=== PATIENT | female | born 1945 | race Caucasian/White ===

== ENCOUNTER 2021-09-02 07:20 | Day surgery (SDC) | payer MEDICARE ==
--- NOTE | 2021-08-27 10:21 | HP ---
DATE OF SURGERY: 09/02/2021 HISTORY OF PRESENT ILLNESS: The patient is a 75-year-old female presented with complaints of some right upper quadrant pain and epigastric pain. The patient at some point in time has been told she had Gray's by Dr. Erazo. She had a colonoscopy in 2019 that showed no polyps. The patient has history of hiatal hernia repair in [place]. They called it TIPS (transjugular intrahepatic portosystemic shunt) procedure. She stated the pain that she has been having has been getting worse. She denies nausea, vomiting or bloating. The patient has had her gallbladder removed. She does also state history of perforated gastric ulcer. She had IR (interventional radiology) drainage of fluid collection in the anterior liver in April 2021. PAST MEDICAL HISTORY: Hypertension, gastroesophageal reflux disease. PAST SURGICAL HISTORY: Cholecystectomy. Hiatal hernia repair. Gastric ulcer perforation repair. ALLERGIES: CLINDAMYCIN. KETAMINE. PANTOPRAZOLE. MEDICATIONS: Metoprolol, Pepcid, acidophilus, Flonase, calcium, multivitamin, latanoprost, Estrace cream, Lasix, fluoxetine, omeprazole. FAMILY HISTORY: None. SOCIAL HISTORY: None. REVIEW OF SYSTEMS: CONSTITUTIONAL: Denies fever or chills. CHEST: Denies shortness of breath. CVS: Denies chest pain. ABDOMEN: Reports right upper quadrant pain. PHYSICAL EXAMINATION: GENERAL: No acute distress. CHEST: Nonlabored. No shortness of breath. CVS: Regular rate and rhythm. ABDOMEN: Soft, nontender. IMPRESSION: Persistent right upper quadrant and epigastric pain and history of colon polyps. This pain is status post patient's hiatal hernia repair. PLAN: EGD and colonoscopy with Dr. Chase Guaman. As dictated by Merary Hua NP.
[2021-09-02] MEDS ORDERED: Lactated Ringers 1,000 ML IV ONE (07:40)
[2021-09-02] MEDS: Lactated Ringers 1,000 ML IV SCH ×2 (07:42→07:44)
[2021-09-02] MEDS ORDERED: DIPRIVAN 200 MG/20 ML IV ONE ×2 (10:17→10:42)
[2021-09-02] MEDS ORDERED: Versed 2 MG/2 ML Injection ONE (10:17)
[2021-09-02] MEDS ORDERED: Xylocaine-Mpf 2% 5 Ml Vial ONE (10:17)
[2021-09-02] MEDS ORDERED: Zofran 4 MG/2 ML VIAL ONE (10:54)
--- NOTE | 2021-09-02 11:53 | OP ---
SURGERY DATE/TIME: 09/02/2021 1014 PREOPERATIVE DIAGNOSES: 1) Epigastric pain. 2) History of polyps. POSTOPERATIVE DIAGNOSES: 1) Severe sigmoid diverticulosis. 2) Moderate internal hemorrhoids 3) Grade 3 over 4 gastroesophageal reflux disease. PROCEDURES: 1) EGD. 2) Colonoscopy. SURGEON: Chase Guaman M.D. ANESTHESIA: MAC. COMPLICATIONS: None. CONDITION: Stable. DESCRIPTION OF PROCEDURE: Taken to endoscopy. Colonoscopy complete to cecum with severe sigmoid diverticulosis, moderate internal hemorrhoids. Anticipated follow up five years. EGD with grade 3 over 4 gastroesophageal reflux disease and visualization of three internal sutures from the minimally invasive gastric wrap with a fairly snug gastroesophageal junction. There was 3 ounces of gastric bile in the fundus. Pylorus normal. Duodenal bulb normal. Second portion normal. Scope looped back into the stomach. Gastroesophageal junction fairly normal from below with ligation sutures clearly visible. Scope withdrawn. IMPRESSION: It does not look like the plication has done anything for her reflux although the plication looks okay. We will see her back in the office and see what additional strategies we can work out with this individual at this time.
[2021-09-02 11:55] VITALS: BP 166/81; PULSE 55; O2SAT 97
== END 2021-09-02 12:00 | disposition home or self-care (01) ==
LOC: SDC 07:20
PROVIDERS: ATTEND Surgery
DX: K57.30 Diverticulosis of large intestine without perforation or abscess without bleeding (principal); Z86.010 Personal history of colon polyps; K64.8 Other hemorrhoids; K21.9 Gastro-esophageal reflux disease without esophagitis
CPT/HCPCS: 99100; J2250; J2405; J2704

== ENCOUNTER 2021-09-03 13:46 | Emergency (ER) | payer MEDICARE ==
--- NOTE | 2021-09-03 14:38 | ERPHSYRPT ---
- History of Present Illness Source: patient Exam Limitations: no limitations Patient Subjective Stated Complaint: PT states "On Jul 08 I fell down a flight of stairs, about 8 to 9 steps and there is a spot on my back that has been hurting ever since. When I stand up alot my back hurts." Triage Nursing Assessment: PT presented alert and oriented X 3, skin pwd. Pt ambulates with an upright steady gait, able to speak in full sentences pt in no apparent respiratory distress. pt has tenderness noted to mid back, no bruising noted. Physician History: 75 yo WF w R paraspinous pain which began 1-2 weeks after falling down stairs at home. She has not been seen by PCP/ER for this problem. Pain is mild at this time but gets severe w movement. Pt's states that the pain was so bad at [facility] today that she becmae nauseated and had to lie down on a bench. She denies chest pain/dyspnea/vomiting/fever/melena/hematochezia. Pt had an EGD/colonoscopy yesterday wo complications. Timing/Duration: other (Late Jun) Method of Injury: fall Quality: aching Severity of Pain-Max: severe Severity of Pain-Current: mild Modifying Factors: Improves With: movement Associated Symptoms: nausea, No fever, No chills, No sweating, No urinary incontinence, No loss of bowel control, No constipation, No vomiting, No problems urinating, No light-headedness, No dizziness, No numbness in legs/feet, No weakness, No sensory/motor loss, No tingling in legs/feet, No lower back pain, No muscle spasms Previous symptoms: same symptoms as today Allergies/Adverse Reactions: clindamycin Allergy (Intermediate, Verified 09/02/21 07:34) Hives ketamine Allergy (Intermediate, Verified 09/02/21 07:34) Nausea and Vomiting pantoprazole Adverse Reaction (Intermediate, Verified 09/02/21 07:34) Lightheadedness Home Medications: Albuterol Common Canister [Ventolin Common Canister] 1 puff IH Q4HPRN PRN 08/25/21 [History] Calcium Carb/Vitamin D3/Vit K1 [Calcium + D Soft Chewable Tab] 1 each PO DAILY 08/25/21 [History] Estradiol [Estrace] 42.5 gm VG WEEKLY 08/25/21 [History] Famotidine [Pepcid] 40 mg PO BID 08/25/21 [History] Fluoxetine HCl 10 mg [Prozac 10 mg] 10 mg PO DAILY 08/25/21 [History] Fluticasone Propionate [Flonase Allergy Relief] 9.9 ml NS DAILY 08/25/21 [History] Fluticasone/Salmeterol [Fluticasone-Salmeterol 113-14] 1 each IH DAILY 08/25/21 [History] Furosemide 20 mg [Lasix 20 mg] 20 mg PO DAILY 08/25/21 [History] L.acidoph,Saliva/B.bif/S.therm [Acidophilus 175 mg Capsule] 175 mg PO DAILY 08/25/21 [History] Latanoprost [Xalatan] 2.5 ml OP DAILY 08/25/21 [History] Metoprolol Tartrate 25 mg [Lopressor 25MG Tab] 25 mg PO BID 08/25/21 [History] Multivitamin 1 each PO DAILY 08/25/21 [History] Hx Tetanus, Diphtheria Vaccination/Date Given: No Hx Influenza Vaccination/Date Given: Yes Hx Pneumococcal Vaccination/Date Given: Yes Immunizations Up to Date: Yes Travel Risk - International Travel Have you traveled outside of the country in past 3 weeks: No - Coronavirus Screening Are you exhibiting any of the following symptoms?: No Close contact with a COVID-19 positive Pt in past 14-21 Days: No - Vaccine Status Have you recieved a Covid-19 vaccination: Yes Technical Support Manager: Moderna - Vaccination Dates Date of 2cond Vaccination (if applicable): 07/2020 - Review of Systems Constitutional: No Symptoms Eyes: No Symptoms Ears, Nose, & Throat: No Symptoms Respiratory: No Symptoms Cardiac: No Symptoms Abdominal/Gastrointestinal: No Symptoms Genitourinary Symptoms: No Symptoms Skin: No Symptoms Neurological: No Symptoms Psychological: No Symptoms Endocrine: No Symptoms Hematologic/Lymphatic: No Symptoms Immunological/Allergic: No Symptoms - Past Medical History Pertinent Past Medical History: Yes ENT History: Glaucoma Cardiac History: Hypertension Respiratory History: Pneumonia Musculoskeletal History: No Pertinent History GI Medical History: GERD History: No Pertinent History Psycho-Social History: No Pertinent History Female Reproductive Disorders: No Pertinent History - Past Surgical History Past Surgical History: Yes Neuro Surgical History: No Pertinent History Cardiac: No Pertinent History Respiratory: No Pertinent History Gastrointestinal: Hernia Repair, Other Other Surgical History: ruptured gastric ulcer, i&d of abcessed incision. - Social History Smoking Status: Former smoker How long have you smoked: 2 years Exposure to second hand smoke: No Drug Use: none Patient Lives Alone: No Significant Family History: no pertinent family hx - Nursing Vital Signs Nursing Vital Signs: Initial Vital Signs Temperature 97.0 F 09/03/21 13:54 Pulse Rate 75 09/03/21 13:54 Respiratory Rate 20 09/03/21 13:54 Blood Pressure 169/69 09/03/21 13:54 O2 Sat by Pulse Oximetry 96 09/03/21 13:54 Pain Scale Pain Intensity 2 Hypertensive - Physical Exam General Appearance: no apparent distress Eye Exam: PERRL/EOMI, eyes nml inspection Ears, Nose, Throat Exam: normal ENT inspection, TMs normal, pharynx normal, moist mucous membranes Neck Exam: normal inspection, non-tender, supple, full range of motion, No meningismus, No mass, No Brudzinski, No Kernig's Respiratory Exam: normal breath sounds, lungs clear, airway intact, No respiratory distress Cardiovascular Exam: regular rate/rhythm, normal heart sounds, normal peripheral pulses, capillary refill <2 sec, No murmur Gastrointestinal Exam: soft, tenderness (RUQ ttp(Chronic)) Back Exam: point tenderness (TTP R mid paraspinous musculature), No CVA tenderness Extremity Exam: normal inspection, normal range of motion Neurologic Exam: alert, oriented x 3, cooperative, switch cleaner II-XII nml as tested, normal mood/affect, nml cerebellar function, nml station & gait, sensation nml, No motor deficits, No sensory deficit Skin Exam: normal color, warm Lymphatic Exam: No adenopathy SpO2 Interpretation: normal SpO2: 96 O2 Delivery: Room Air - Course Nursing assessment & vital signs reviewed: Yes EKG Interpreted by Me: RATE (NSR/Rate 64/Mildly prolonged Qt-QTc/Flipped T waves ) - Radiology Exams Chest X-ray Interpretation: Discussed w/ radiologist (L mid-lower lung atelectasis/scarring) - CT Exams Chest CT Interpretation: Discussed w/radiologist (CT Tspine-endplate deformity T1/T3/L1, Patchy LLL interstitual alveolar opacities) Ordered Tests: Active Orders 24 hr Category Date Time Status EKG-ER Only STAT Care 09/03/21 14:29 Completed CHEST 1 VIEW (PORTABLE) Stat Exams 09/03/21 16:31 Completed THORACIC SPINE W/O CONTRAST [CT] Stat Exams 09/03/21 14:28 Completed CBC W DIFF Stat Lab 09/03/21 15:00 Completed CMP Stat Lab 09/03/21 15:00 Completed TROPONIN Q3H Lab 09/03/21 15:00 Completed TROPONIN Q3H Lab 09/03/21 17:32 Completed Lab/Rad Data: Laboratory Result Diagrams 09/03/21 15:00 09/03/21 15:00 Laboratory Results 09/03/21 09/03/21 09/03/21 Range/Units 17:32 15:00 15:00 WBC (4.0-10.5) K/mm3 RBC (4.1-5.4) M/mm3 Hgb (12.0-16.0) gm/dl Hct (35-47) % MCV (78-100) fl MCH (26-32) pg MCHC (32-36) g/dl RDW (11.5-14.0) % Plt Count (150-450) K/mm3 MPV (7.5-11.0) fl Gran % (36.0-66.0) % Eos # (Auto) (0-0.5) Absolute Lymphs (auto) (1.0-4.6) Absolute Monos (auto) (0.0-1.3) Lymphocytes % (24.0-44.0) % Monocytes % (0.0-12.0) % Eosinophils % (0.00-5.0) % Basophils % (0.0-0.4) % Absolute Granulocytes (1.4-6.9) Basophils # (0-0.4) Sodium 136 L (137-145) mmol/L Potassium 4.1 (3.5-5.1) mmol/L Chloride 101 (98-107) mmol/L Carbon Dioxide 26 (22-30) mmol/L Anion Gap 13.0 (5-15) MEQ/L BUN 14 (7-17) mg/dL Creatinine 0.87 (0.52-1.04) mg/dL Estimated GFR > 60.0 ML/MIN Glucose 113 H (74-106) mg/dL Calcium 9.1 (8.4-10.2) mg/dL Total Bilirubin 1.00 (0.2-1.3) mg/dL AST 27 (14-36) U/L ALT 16 (0-35) U/L Alkaline Phosphatase 82 (38-126) U/L Troponin I < 0.012 < 0.012 (0.000-0.034) ng/mL Serum Total Protein 7.4 (6.3-8.2) g/dL Albumin 4.0 (3.5-5.0) g/dL 09/03/21 Range/Units 15:00 WBC 14.4 H (4.0-10.5) K/mm3 RBC 3.79 L (4.1-5.4) M/mm3 Hgb 11.7 L (12.0-16.0) gm/dl Hct 35.6 (35-47) % MCV 93.9 (78-100) fl MCH 30.9 (26-32) pg MCHC 32.9 (32-36) g/dl RDW 13.3 (11.5-14.0) % Plt Count 316 (150-450) K/mm3 MPV 9.0 (7.5-11.0) fl Gran % 83.4 H (36.0-66.0) % Eos # (Auto) 0.02 (0-0.5) Absolute Lymphs (auto) 1.26 (1.0-4.6) Absolute Monos (auto) 1.08 (0.0-1.3) Lymphocytes % 8.7 L (24.0-44.0) % Monocytes % 7.5 (0.0-12.0) % Eosinophils % 0.1 (0.00-5.0) % Basophils % 0.3 (0.0-0.4) % Absolute Granulocytes 12.01 H (1.4-6.9) Basophils # 0.05 (0-0.4) Sodium (137-145) mmol/L Potassium (3.5-5.1) mmol/L Chloride (98-107) mmol/L Carbon Dioxide (22-30) mmol/L Anion Gap (5-15) MEQ/L BUN (7-17) mg/dL Creatinine (0.52-1.04) mg/dL Estimated GFR ML/MIN Glucose (74-106) mg/dL Calcium (8.4-10.2) mg/dL Total Bilirubin (0.2-1.3) mg/dL AST (14-36) U/L ALT (0-35) U/L Alkaline Phosphatase (38-126) U/L Troponin I (0.000-0.034) ng/mL Serum Total Protein (6.3-8.2) g/dL Albumin (3.5-5.0) g/dL - Progress Progress Note: 09/03/21 17:25 Pt refused pain meds during entire stay Before discharge, pt states that she had some old Wayne's from a previous procedure which she was cutting in half for pain 09/03/21 20:01 Counseled pt/family regarding: lab results, diagnosis, need for follow-up, rad results - Departure Departure Disposition: Home Clinical Impression: Compression fracture Condition: Stable Critical Care Time: No Referrals: ELIANE MALLORY DO [Primary Care Provider] - Follow up/PCP as directed Instructions: Vertebral Compression Fracture (DC) Additional Instructions: Follow up with your family Tylenol #3 as needed for pain Use a stool softener with pain meds Return to ER for increasing pain/chest pain/Fever/Shortness of breath Prescriptions: Codeine Phosphate/APAP #3 [Tylenol #3 Tablet] 1 tab PO Q4-6HPRN PRN #8 tablet MDD 4 tabs PRN Reason: Pain
[2021-09-03 15:04] LABS: Absolute Neutrophil Ct (ANC) 12.01 (1.4-6.9); Basophil (Absolute #) 0.05 (0-0.4); Eosinophil % 0.1 % (0.00-5.0); Eosinophil (Absolute #) 0.02 (0-0.5); Hematocrit 35.6 % (35-47); Hemoglobin 11.7 gm/dl (12.0-16.0); Lymphocyte (Absolute #) 1.26 (1.0-4.6); Lymphocytes % 8.7 % (24.0-44.0); Mean Cell Volume 93.9 fl (78-100); Mean Corpuscular Hemoglobin 30.9 pg (26-32); Mean Corpuscular Hgb Concent. 32.9 g/dl (32-36); Monocyte (Absolute #) 1.08 (0.0-1.3); Monocytes % 7.5 % (0.0-12.0); Neutrophil % 83.4 % (36.0-66.0); Platelet Count 316 K/mm3 (150-450); Red Blood Count 3.79 M/mm3 (4.1-5.4); Red Cell Distribution Width 13.3 % (11.5-14.0); White Blood Count 14.4 K/mm3 (4.0-10.5)
[2021-09-03 15:19] LABS: ALKALINE PHOSPHATASE 82 U/L (38-126); BLOOD UREA NITROGEN 14 mg/dL (7-17); CHLORIDE 101 mmol/L (98-107); Calcium 9.1 mg/dL (8.4-10.2); Carbon Dioxide 26 mmol/L (22-30); Creatinine 1 0.87 mg/dL (0.52-1.04); EST GLOMERULAR FILTRATION RATE > 60.0 ML/MIN; Glucose 113 mg/dL (74-106); Potassium 4.1 mmol/L (3.5-5.1); SGOT/AST 27 U/L (14-36); SGPT/ALT 16 U/L (0-35); SODIUM 136 mmol/L (137-145); Total Protein 7.4 g/dL (6.3-8.2)
--- NOTE | 2021-09-03 15:56 | XRAY ---
Indication: Pain following fall July 08, 2021. Multiple contiguous axial images obtained through the thoracic spine. Sagittal and coronal reformatted images obtained. Comparison: None Osseous structures demineralized consistent with patient's age. Axial images demonstrates mild T6-T9 degenerative endplate spurring and mild T8-T9 degenerative vacuum disc phenomena. No acute fracture, suspicious bony lesions, or spinal canal stenosis. Sagittal and coronal reformatted images demonstrates normal thoracic alignment with T6-T9 disc space loss. T1/T3/L1 superior endplates demonstrates minimal concave deformities either Schmorl nodes versus remote endplate fractures. No acute compression fracture or subluxation. Visualized noncontrasted soft tissues demonstrates moderate left lower lobe subsegmental atelectasis/scarring with patchy interstitial alveolar opacities. Impression: 1. Negative acute fracture/subluxation. 2. Minimal T1/T3/L1 superior endplate concave deformities either Schmorl nodes versus remote endplate fractures. 3. Osteopenia and T6-T9 degenerative changes. 4. Patchy left lower lobe interstitial alveolar opacities. Correlate clinically.
--- NOTE | 2021-09-03 16:50 | XRAY ---
Indication: Back pain following fall Jul 08, 2021. Comparison: October 18, 2019. Portable chest again demonstrates left mid to lower lung subsegmental atelectasis/scarring, less than before. Remaining heart and lungs unremarkable again with a few incidental right hilar calcified nodes. Bony thorax intact. No new/acute findings.
[2021-09-03 17:26] VITALS: O2SAT 96
[2021-09-03 18:03] VITALS: BP 160/77; PULSE 61
== END 2021-09-03 18:10 | disposition home or self-care (01) ==
LOC: ED 13:46
DX: S22.018A Other fracture of first thoracic vertebra, initial encounter for closed fracture (principal); S22.038A Other fracture of third thoracic vertebra, initial encounter for closed fracture; S32.018A Other fracture of first lumbar vertebra, initial encounter for closed fracture; W10.9XXA Fall (on) (from) unspecified stairs and steps, initial encounter; M54.9 Dorsalgia, unspecified; R11.0 Nausea; I10 Essential (primary) hypertension; K21.9 Gastro-esophageal reflux disease without esophagitis; Z79.899 Other long term (current) drug therapy; Z79.891 Long term (current) use of opiate analgesic
CPT/HCPCS: 36415; 71045; 72128; 80053; 84484; 85025; 93005; 99284

== ENCOUNTER 2023-02-27 11:29 | Observation (INO) | payer MEDICARE ==
--- NOTE | 2023-02-27 11:38 | ERPHSYRPT ---
- History of Present Illness Time Seen by Provider: 02/27/23 11:29 Source: patient, EMS Exam Limitations: no limitations Physician History: Reportedly pt slipped & fell at home about 1 hour ago on concrete with pain in her left thigh; denies numbness, chest pain, shortness of air, fever. Allergies/Adverse Reactions: clindamycin Allergy (Intermediate, Verified 02/27/23 11:38) Hives ketamine Allergy (Intermediate, Verified 02/27/23 11:38) Nausea and Vomiting pantoprazole Adverse Reaction (Intermediate, Verified 02/27/23 11:38) Lightheadedness Home Medications: Albuterol Common Canister [Ventolin Common Canister] 1 puff IH Q4HPRN PRN 08/25/21 [History] Calcium Carb/Vitamin D3/Vit K1 [Calcium + D Soft Chewable Tab] 1 each PO DAILY 08/25/21 [History] Estradiol [Estrace] 42.5 gm VG WEEKLY 08/25/21 [History] Famotidine [Pepcid] 40 mg PO BID 08/25/21 [History] Fluoxetine HCl 10 mg [Prozac 10 mg] 10 mg PO DAILY 08/25/21 [History] Fluticasone Propionate [Flonase Allergy Relief] 9.9 ml NS DAILY 08/25/21 [History] Fluticasone/Salmeterol [Fluticasone-Salmeterol 113-14] 1 each IH DAILY 08/25/21 [History] Furosemide 20 mg [Lasix 20 mg] 20 mg PO DAILY 08/25/21 [History] Latanoprost [Xalatan] 2.5 ml OP DAILY 08/25/21 [History] Multivitamin 1 each PO DAILY 08/25/21 [History] Lisinopril 10 mg [Zestril 10 MG] 10 mg PO DAILY 02/27/23 [History] Hx Tetanus, Diphtheria Vaccination/Date Given: No Hx Influenza Vaccination/Date Given: Yes Hx Pneumococcal Vaccination/Date Given: Yes Travel Risk - Vaccine Status Have you recieved a Covid-19 vaccination: Yes Ward Nurse: Moderna - Vaccination Dates Date of 2cond Vaccination (if applicable): 07/2020 - Review of Systems Constitutional: No Fever Respiratory: No Dyspnea Cardiac: No Chest Pain Abdominal/Gastrointestinal: No Abdominal Pain Musculoskeletal: Other (pain in left thigh) Neurological: No Sensory Changes - Past Medical History Pertinent Past Medical History: Yes ENT History: Glaucoma Cardiac History: Hypertension Respiratory History: Pneumonia Musculoskeletal History: No Pertinent History GI Medical History: GERD History: No Pertinent History Psycho-Social History: No Pertinent History Female Reproductive Disorders: No Pertinent History - Past Surgical History Past Surgical History: Yes Neuro Surgical History: No Pertinent History Cardiac: No Pertinent History Respiratory: No Pertinent History Gastrointestinal: Hernia Repair, Other Other Surgical History: ruptured gastric ulcer, i&d of abcessed incision. - Social History Smoking Status: Former smoker How long have you smoked: 2 years Exposure to second hand smoke: No Drug Use: none Patient Lives Alone: No Significant Family History: no pertinent family hx - Nursing Vital Signs Nursing Vital Signs: Initial Vital Signs Temperature 97.0 F 02/27/23 11:47 Pulse Rate 50 L 02/27/23 11:47 Respiratory Rate 18 02/27/23 11:47 Blood Pressure 175/68 02/27/23 11:47 O2 Sat by Pulse Oximetry 100 02/27/23 11:47 Pain Scale Pain Intensity 4 - Robinson Coma Score Best Eye Response (Gerardo): (4) open spontaneously Best Verbal Response (Robinson): (5) oriented Best Motor Response (Gerardo): (6) obeys commands Robinson Total: 15 - Physical Exam General Appearance: alert Head Injury: no evidence of injury Eye Exam: PERRL/EOMI ENT Exam: nml ext.inspection Neck Exam: trachea midline Respiratory/Chest Exam: normal breath sounds, No chest tenderness Cardiovascular Exam: normal heart sounds Gastrointestinal Exam: soft, normal bowel sounds, No tenderness Extremity Exam: tenderness (moderate tenderness over mid anterior left thigh; tender ecchymosis over mid left keys. Decreased rom of left lower extremity.) Peripheral Pulses: dorsalis-pedis (R): 2+, dorsalis-pedis (L): 2+ Neurologic Exam: alert, oriented x 3, cooperative Skin Exam: warm, dry SpO2 Interpretation: normal SpO2: 100 O2 Delivery: Room Air - Radiology Exams Left Femur X-ray Interpretation: Discussed w/ radiologist, No Fracture Left Lower Leg X-ray Interpretation: Discussed w/ radiologist, No Fracture Ordered Tests: Active Orders 24 hr Category Date Time Status IV Insertion STAT Care 10/09/23 11:54 Active FEMUR Stat Exams 02/27/23 12:17 Completed LOWER LEG Stat Exams 02/27/23 12:17 Completed Medication Summary Generic Name Dose Route Start Last Admin Trade Name Freq PRN Reason Stop Dose Admin Sodium Chloride 1,000 mls @ 100 mls/hr 02/27/23 11:45 02/27/23 11:47 Sodium Chloride 0.9% 1000 Ml IV 03/29/23 11:44 100 mls/hr .Q10H KAYLEE Administration Discontinued Medications Generic Name Dose Route Start Last Admin Trade Name Freq PRN Reason Stop Dose Admin Morphine Sulfate 2 mg 02/27/23 11:57 02/27/23 11:59 Morphine Sulfate 2 Mg/Ml Inj IV 02/27/23 11:58 2 mg STAT ONE Administration Morphine Sulfate Confirm 02/27/23 11:58 Morphine Sulfate 2 Mg/Ml Inj Administered 02/27/23 11:59 Dose 2 mg .ROUTE .STK-MED ONE - Progress Progress: unchanged Discussed with Dr.: Other (Spoke with Dr. Daley - obs) Counseled pt/family regarding: diagnosis, rad results Medical Desision Making - Discussion of managment Agreed on:: place in obs Will see patient: in hospital - Diagnostic Testing Diagnostic test were ordered, analyzed, and reviewed by me: Yes Radiological Interpretation: Discussed w/ radiologist - Risk of complications Low Risk: Low risk of morbidity from additional dx testing or treatment - Departure Departure Disposition: Home Clinical Impression: Contusion of left leg, Left thigh pain, Fall Condition: Stable Critical Care Time: No Referrals: ELIANE MALLORY, [Primary Care Provider] - Follow up/PCP as directed
[2023-02-27] MEDS: Sodium Chloride 0.9% 1000 ML 1,000 ML IV SCH ×2 (11:47→18:06)
[2023-02-27] MEDS ORDERED: MORPHINE SULFATE 2 MG INJ IV ONE (11:57)
[2023-02-27] MEDS ORDERED: MORPHINE SULFATE 2 MG INJ ONE (11:58)
--- NOTE | 2023-02-27 12:26 | XRAY ---
Indication: Pain following fall. Comparison: None 2 view left femur demonstrates osteopenia and 3 cm pelvic calcification uterine fibroid. No other bony, articular, or soft tissue abnormalities.
--- NOTE | 2023-02-27 12:26 | XRAY ---
Indication: Pain following fall. Comparison: None 2 view left lower leg demonstrate osteopenia and mild anterior soft tissue swelling. No other bony, articular, or soft tissue abnormalities.
[2023-02-27] MEDS ORDERED: ZOFRAN ODT 4 MG PO PRN (13:58)
[2023-02-27] MEDS ORDERED: HYDROCODONE-ACETAMIN 10-325 MG PO PRN (13:58)
--- NOTE | 2023-02-27 14:40 | PCM.HP ---
History of Present Illness - Chief Complaint Chief Complaint: Contuision of left leg; Pain in left thigh; Fall Date: 02/27/23 History of Present Illness: is a 77 year old female with PMHX of Glaucoma, HTN, GERD, and gastric ulcer. She was seen in the ER for a contusion of left leg, left thigh pain, after a fall on to concrete. She reports she just did not lift her leg up high enough which caused her fall. She reports she also fell onto her right shoulder but she has no pain. She does have a hematoma of LLE but no lesions up the left upper leg. She reports her pain level is a 2/10 until she moves her leg and then her pain is a 10/10 and is sharp and stabbing. THe stabbing pain radiates from her foot up to her thigh. Left tib / fib and femur XR were negative. MRI pending. Pt continues to be in a lot of pain will start [place] and gabapentin. AST and ALT elevated. Will order CK for further eval and US of liver. - Review of Systems Constitutional: No Fever, No Chills Eyes: No Symptoms Ears, Nose, & Throat: No Symptoms Respiratory: No Cough, No Short Of Breath Cardiac: No Chest Pain, No Edema, No Syncope Abdominal/Gastrointestinal: No Abdominal Pain, No Nausea, No Vomiting, No Diarrhea Genitourinary Symptoms: No Dysuria Musculoskeletal: Fall, Injury (LLE pain), No Back Pain, No Neck Pain Skin: Skin Lesions (hematoma LLE), No Rash Neurological: No Dizziness, No Focal Weakness, No Sensory Changes Psychological: No Symptoms Endocrine: No Symptoms Hematologic/Lymphatic: No Symptoms Immunological/Allergic: No Symptoms Medications & Allergies Home Medications: Home Medication List Albuterol Common Canister [Ventolin Common Canister] 1 puff IH Q4HPRN PRN 08/25/21 [History Confirmed 02/27/23] Calcium Carb/Vitamin D3/Vit K1 [Calcium + D Soft Chewable Tab] 1 each PO DAILY 08/25/21 [History Confirmed 02/27/23] Estradiol [Estrace] 42.5 gm VG WEEKLY 08/25/21 [History Confirmed 02/27/23] Famotidine [Pepcid] 40 mg PO BID 08/25/21 [History Confirmed 02/27/23] Fluoxetine HCl 10 mg [Prozac 10 mg] 10 mg PO DAILY 08/25/21 [History Confirmed 02/27/23] Fluticasone Propionate [Flonase Allergy Relief] 9.9 ml NS DAILY 08/25/21 [History Confirmed 02/27/23] Fluticasone/Salmeterol [Fluticasone-Salmeterol 113-14] 1 each IH DAILY 08/25/21 [History Confirmed 02/27/23] Furosemide 20 mg [Lasix 20 mg] 20 mg PO DAILY 08/25/21 [History Confirmed 02/27/23] Latanoprost [Xalatan] 2.5 ml OP DAILY 08/25/21 [History Confirmed 02/11] Multivitamin 1 each PO DAILY 08/25/21 [History Confirmed 02/27/23] Lisinopril 10 mg [Zestril 10 MG] 10 mg PO DAILY 02/27/23 [History Confirmed 02/27/23] Allergies/Adverse Reactions: Allergies Allergy/AdvReac Type Severity Reaction Status Date / Time clindamycin Allergy Intermediate Hives Verified 02/27/23 11:38 ketamine Allergy Intermediate Nausea and Verified 02/27/23 11:38 Vomiting pantoprazole AdvReac Intermediate Lightheaded Verified 02/27/23 11:38 ness - Past Medical History Past Medical History: Yes ENT History: Glaucoma Cardiac History: Hypertension Respiratory History: Pneumonia Musculoskelatal History: No Pertinent History GI Medical History: GERD History: No Pertinent History Pyscho-Social History: No Pertinent History Reproductive Disorders: No Pertinent History - Past Surgical History Past Surgical History: Yes Neuro Surgical History: No Pertinent History Cardiac History: No Pertinent History Respiratory Surgery: No Pertinent History GI Surgical History: Hernia Repair, Other Female Surgical History: Tubal Ligation Other Surgical History: ruptured gastric ulcer, i&d of abcessed incision. - Social History Smoking Status: Former smoker How long have you smoked: 2 years Exposure to second hand smoke: No Alcohol: Rarely Drug Use: none Significant Family History: no pertinent family hx - Physical Exam Vital Signs: Vital Signs - 24 hr Temp Pulse Resp BP BP Pulse Ox 02/27/23 14:20 61 28 H 96 02/27/23 14:18 100 02/27/23 14:10 65 24 97 02/27/23 14:00 22 96 02/27/23 13:50 72 23 97 02/27/23 13:40 63 23 97 02/27/23 13:30 66 20 98 02/27/23 13:20 66 16 95 02/27/23 13:10 63 15 96 02/27/23 13:00 68 23 94 L 02/27/23 12:50 78 26 H 93 L 02/27/23 12:41 63 18 93 L 02/27/23 12:38 80 16 113/60 95 02/27/23 11:47 97.0 F 50 L 18 175/68 100 General Appearance: mild distress, alert Neurologic Exam: alert, oriented x 3, cooperative, normal mood/affect, nml cerebellar function, nml station & gait, sensation nml, No motor deficits Eye Exam: PERRL/EOMI, eyes nml inspection Ears, Nose, Throat Exam: normal ENT inspection, TMs normal, pharynx normal, m oist mucous membranes Neck Exam: normal inspection, non-tender, supple, full range of motion Respiratory Exam: normal breath sounds, lungs clear, No respiratory distress Cardiovascular Exam: regular rate/rhythm, normal heart sounds, normal peripheral pulses Gastrointestinal/Abdomen Exam: soft, normal bowel sounds, No tenderness, No mass Back Exam: normal inspection, normal range of motion, No CVA tenderness, No vertebral tenderness Extremity Exam: normal inspection, normal range of motion, pelvis stable, tenderness (LLE, + hematoma Left keys.) Skin Exam: normal color, warm, dry, No rash Lymphatic Exam: No adenopathy Results - Radiology Impressions Radiology Exams & Impressions: Radiology Procedures Category Date Time Status FEMUR Stat Exams 02/27/23 12:17 Completed LOWER LEG Stat Exams 02/27/23 12:17 Completed MRI LOWER EXT W/O CONTRAST [MRI] Stat Exams 02/27/23 13:58 Ordered Assessment/Plan (1) Contusion of left leg Current Visit: Yes Status: Acute Assessment & Plan: - 2:2 fall - PT/ OT - XR femur and tib/ fib negative for fx. - MRI pending - PRN narcotic pain medication and tylenol - Gabapentin - Ice pack to affected areas Code(s): S80.12XA - (2) Fall Current Visit: Yes Status: Acute Assessment & Plan: - pt reports she did not lift her leg high enough and fell on concrete - PT/OT Code(s): W19.XXXA - (3) Depression Current Visit: Yes Status: Chronic Assessment & Plan: - continue home med Code(s): F32.A - DEPRESSION, UNSPECIFIED (4) GERD (gastroesophageal reflux disease) Current Visit: Yes Status: Chronic Assessment & Plan: - continue home med Code(s): K21.9 - GASTRO-ESOPHAGEAL REFLUX DISEASE WITHOUT ESOPHAGITIS (5) HTN (hypertension) Current Visit: Yes Status: Acute Assessment & Plan: - stable - continue home med Code(s): I10 - ESSENTIAL (PRIMARY) HYPERTENSION (6) Abnormal AST and ALT Current Visit: Yes Status: Acute Assessment & Plan: - Will recheck in AM - Lipid panel in AM - CK ordered - US liver. PPI: Pepcid D/c plan 1-2 days Code status: Full Next of Kin: Code(s): R74.8 - ABNORMAL LEVELS OF OTHER SERUM ENZYMES
[2023-02-27 15:40] LABS: Hematocrit 37.5 % (35-47); Hemoglobin 12.6 g/dL (12.0-16.0); Mean Cell Volume 93.1 fL (78-100); Mean Corpuscular Hemoglobin 31.3 pg (26-32); Mean Corpuscular Hgb Concent. 33.6 g/dL (32-36); Mean Platelet Volume 9.6 fL (7.5-11.0); Platelet Count 204 x10^3/uL (150-450); Red Blood Count 4.03 x10^6/uL (4.1-5.4); Red Cell Distribution Width 12.8 % (11.5-14.0)
[2023-02-27 15:52] LABS: ALBUMIN 4.1 g/dL (3.5-5.0); ALKALINE PHOSPHATASE 121 U/L (38-126); ANION GAP 9.2 MEQ/L (5-15); BLOOD UREA NITROGEN 16 mg/dL (7-17); CHLORIDE 105 mmol/L (98-107); Calcium 8.7 mg/dL (8.4-10.2); Carbon Dioxide 29 mmol/L (22-30); Creatinine 1 0.83 mg/dL (0.52-1.04); EST GLOMERULAR FILTRATION RATE > 60.0 ML/MIN; Glucose 121 mg/dL (74-106); Potassium 4.3 mmol/L (3.5-5.1); SGOT/AST 347 U/L (14-36); SGPT/ALT 109 U/L (0-35); SODIUM 139 mmol/L (137-145); Total Protein 6.9 g/dL (6.3-8.2)
[2023-02-27] MEDS ORDERED: VENTOLIN COMMON CANISTER IH PRN (16:23)
[2023-02-27] MEDS ORDERED: ESTRADIOL APPL VG SCH (16:30)
--- NOTE | 2023-02-27 16:34 | XRAY ---
Indication: Pain following fall. Sagittal, coronal, and axial MRI left hip performed using T1, T2, and STIR sequences. Comparison: None Left hip articulation intact without abnormal effusion. No acute fracture, suspicious bony lesions, bony remodeling, or evidence for avascular necrosis. Visualized surrounding soft tissues and visualized pelvic contents are unremarkable. Impression: Normal MRI left hip.
[2023-02-27] MEDS ORDERED: MEDICATION INTERVENTION MC SCH (17:30)
[2023-02-27] MEDS: Pepcid 20 MG PO SCH (21:36)
[2023-02-27] MEDS: NEURONTIN PO SCH (21:36)
[2023-02-27] MEDS ORDERED: PROZAC 10 MG PO SCH (22:00)
[2023-02-27] MEDS ORDERED: Xalatan OP SCH (22:00)
[2023-02-27] MEDS ORDERED: NON-FORMULARY ITEM (Famotidine [Pepcid] 40 MG Tablet) PO SCH (22:00)
[2023-02-28] MEDS ORDERED: APRESOLINE 20 MG/ML INJ IV PRN (00:06)
[2023-02-28] MEDS: Sodium Chloride 0.9% 1000 ML 1,000 ML IV SCH (04:00)
[2023-02-28 04:54] LABS: Hematocrit 36.5 % (35-47); Mean Cell Volume 93.1 fL (78-100); Mean Corpuscular Hemoglobin 30.6 pg (26-32); Mean Corpuscular Hgb Concent. 32.9 g/dL (32-36); Mean Platelet Volume 9.9 fL (7.5-11.0); Platelet Count 203 x10^3/uL (150-450); Red Blood Count 3.92 x10^6/uL (4.1-5.4); Red Cell Distribution Width 13.2 % (11.5-14.0); White Blood Count 6.2 x10^3/uL (4.0-10.5)
[2023-02-28 05:09] LABS: ALBUMIN 3.8 g/dL (3.5-5.0); ALKALINE PHOSPHATASE 135 U/L (38-126); ANION GAP 12.5 MEQ/L (5-15); BLOOD UREA NITROGEN 15 mg/dL (7-17); CHLORIDE 108 mmol/L (98-107); Calcium 8.5 mg/dL (8.4-10.2); Carbon Dioxide 22 mmol/L (22-30); EST GLOMERULAR FILTRATION RATE > 60.0 ML/MIN; Glucose 117 mg/dL (74-106); Potassium 3.6 mmol/L (3.5-5.1); SGOT/AST 401 U/L (14-36); SGPT/ALT 242 U/L (0-35); SODIUM 139 mmol/L (137-145); Total Protein 6.4 g/dL (6.3-8.2)
[2023-02-28 05:16] LABS: Risk Ratio 2.8
[2023-02-28] MEDS ORDERED: Advair Hfa 115/21 Mcg Inhaler IH SCH (07:00)
[2023-02-28] MEDS ORDERED: TYLENOL 325 MG PO PRN (07:53)
--- NOTE | 2023-02-28 09:57 | XRAY ---
Indication: Elevated liver enzymes. Cholecystectomy. Two-dimensional right upper quadrant abdominal sonogram performed. Comparison: None Pancreas not well-seen due to overlying bowel gas. Visualized liver appears homogeneous without hepatomegaly or free fluid. Gallbladder surgically absent. Common bile duct prominent measuring 8.8 mm. No intrahepatic biliary distention. Right kidney measures 10.2 x 4.5 x 4.3 cm and sonographically unremarkable. Impression: Nonvisualization pancreas. Prominent common bile duct without intrahepatic biliary distention. Remaining right upper quadrant sonogram is negative.
[2023-02-28] MEDS ORDERED: Zestril 10 MG PO SCH (10:00)
[2023-02-28] MEDS ORDERED: NON-FORMULARY ITEM (Fluticasone Propionate [Flonase Allergy Relief] 9.9 ML Spray.Susp) NS SCH (10:00)
[2023-02-28] MEDS ORDERED: PROZAC 10 MG PO SCH (10:00)
[2023-02-28] MEDS ORDERED: Xalatan OP SCH ×2 (10:00→22:00)
[2023-02-28] MEDS ORDERED: SALMETEROL IH SCH (10:00)
[2023-02-28] MEDS ORDERED: NON-FORMULARY ITEM (Multivitamin [Multivitamin] 1 EACH Tablet) PO SCH (10:00)
[2023-02-28] MEDS ORDERED: LASIX 20 MG PO SCH (10:00)
[2023-02-28] MEDS ORDERED: Flonase NASAL NS SCH (10:00)
[2023-02-28] MEDS ORDERED: Calcium 500MG W/Vit D Tablet PO SCH (10:00)
[2023-02-28] MEDS ORDERED: THERAGRAN MULTIVITAMIN PO SCH (10:00)
[2023-02-28] MEDS ORDERED: [UNRECOGNIZED DRUG - OTHER] IH SCH (10:00)
[2023-02-28] MEDS ORDERED: FLUTICASONE IH SCH (10:00)
--- NOTE | 2023-02-28 11:35 | XRAY ---
Indication: Elevated liver enzymes. Multiple contiguous axial images obtained through the abdomen and pelvis prior to and following 80 cc Isovue 370 contrast as ordered. Comparison: None Lung bases demonstrate scattered fibrosis/scarring without infiltrate or effusion. Heart not enlarged. Noncontrasted images uterine calcified fibroids largest fundal measuring 2.0 x 2.2 cm. No other pathologic visceral calcifications/calculi. Noncontrasted stomach and bowel loops appear nonobstructed with normal appendix. Scattered colonic diverticulosis and mild diffuse fecal stasis. Previous cholecystectomy with mild biliary tree prominence. Common bile duct measures 7 mm. No free fluid/air. Postcontrast images demonstrates normal visceral enhancement and renal excretion. Remaining liver, pancreas, spleen, adrenal glands, kidneys, and proximal ureters are unremarkable. Minimal aortic calcifications. No AAA or pathologic retroperitoneal lymphadenopathy. Osseous structures intact with osteopenia and minimal/mild degenerative changes throughout the thoracolumbar spine. Supraumbilical ventral hernia defect at least 7 cm in diameter with protruding loop of transverse colon without complications. Impression: 1. Chronic findings including prominent biliary tree, calcified uterine fibroid, colonic diverticulosis, arteriosclerotic disease, ventral hernia, and chronic bony findings. 2. Mild diffuse fecal stasis. 3. Remaining CT abdomen/pelvis with and without contrast exam is negative.
[2023-02-28] MEDS: Pepcid 20 MG PO SCH (11:38)
[2023-02-28] MEDS: NEURONTIN PO SCH ×2 (11:40→14:33)
[2023-02-28 11:51] VITALS: BP 174/74; PULSE 66; RESP 16; TEMP 97.3; O2SAT 98
--- NOTE | 2023-02-28 12:27 | PCM.DS ---
Discharge Summary Date of Admission: 02/27/23 15:52 Date of Discharge: 02/28/23 Admitting Physician: RADHA ROLAND MD Primary Care Provider: ELIANE MALLORY, Allergies Allergies clindamycin Allergy (Intermediate, Verified 02/27/23 11:38) Hives ketamine Allergy (Intermediate, Verified 02/27/23 11:38) Nausea and Vomiting pantoprazole Adverse Reaction (Intermediate, Verified 02/27/23 11:38) [facility] Summary - Hospital Course Hospital Course: 02/27/23 is a 77 year old female with PMHX of Glaucoma, HTN, GERD, and gastric ulcer. She was seen in the ER for a contusion of left leg, left thigh pain, after a fall on to concrete. She reports she just did not lift her leg up high enough which caused her fall. She reports she also fell onto her right shoulder but she has no pain. She does have a hematoma of LLE but no lesions up the left upper leg. She reports her pain level is a 2/10 until she moves her leg and then her pain is a 10/10 and is sharp and stabbing. The stabbing pain radiates from her foot up to her thigh. Left tib / fib and femur XR were negative. MRI pending. Pt continues to be in a lot of pain will start [place] and gabapentin. AST and ALT elevated. Will order CK for further eval and US of liver. 02/28/23 Pt resting in bed. She explained her pain is better today. She was able to get up and use the bedside commode. She is not having any sharp or jerking pain as she describes. MRI of lLE was negative yesterday. US of liver and CT abd. negative. Liver enzymes elevated and she has no abd. pain complaints. Can f/u OP as labs will need to be rechecked. Will d/c with gabapentin and pain medication PRN. She denies any further concerns at this time. CM to set up OP PT. - Vitals & Intake/Output Vital Signs: Vital Signs Temperature 97.3 F 02/28/23 11:50 Pulse Rate 66 02/28/23 11:50 Respiratory Rate 16 02/28/23 11:50 Blood Pressure 174/74 02/28/23 11:50 O2 Sat by Pulse Oximetry 98 10/10/23 11:50 Intake & Output: Intake & Output 02/26/23 02/27/23 02/28/23 03/01/23 11:59 11:59 11:59 11:59 Intake Total 1476 Output Total 1450 Balance 26 Weight 87.9 kg 84.2 kg - Lab Result Diagrams: 02/28/23 04:33 02/28/23 04:33 Lab Results-Last 24 Hrs: Lab Results-Last 24 Hours 02/27/23 02/27/23 02/27/23 Range/Units 15:30 15:30 15:30 WBC 11.0 H (4.0-10.5) x10^3/uL RBC 4.03 L (4.1-5.4) x10^6/uL Hgb 12.6 (12.0-16.0) g/dL Hct 37.5 (35-47) % MCV 93.1 (78-100) fL MCH 31.3 (26-32) pg MCHC 33.6 (32-36) g/dL RDW 12.8 (11.5-14.0) % Plt Count 204 (150-450) x10^3/uL MPV 9.6 (7.5-11.0) fL Sodium 139 (137-145) mmol/L Potassium 4.3 (3.5-5.1) mmol/L Chloride 105 (98-107) mmol/L Carbon Dioxide 29 (22-30) mmol/L Anion Gap 9.2 (5-15) MEQ/L BUN 16 (7-17) mg/dL Creatinine 0.83 (0.52-1.04) mg/dL Estimated GFR > 60.0 ML/MIN Glucose 121 H (74-106) mg/dL Calcium 8.7 (8.4-10.2) mg/dL Total Bilirubin 1.20 (0.2-1.3) mg/dL AST 347 H (14-36) U/L ALT 109 H (0-35) U/L Alkaline Phosphatase 121 (38-126) U/L Creatine Kinase 58 (30-135) U/L Serum Total Protein 6.9 (6.3-8.2) g/dL Albumin 4.1 (3.5-5.0) g/dL Triglycerides (30-150) mg/dL Cholesterol (50-200) mg/dL LDL Cholesterol (30-100) mg/dL HDL Cholesterol (40-60) mg/dL Heart Disease Risk Ratio 02/28/23 02/28/23 02/28/23 Range/Units 04:33 04:33 04:33 WBC 6.2 (4.0-10.5) x10^3/uL RBC 3.92 L (4.1-5.4) x10^6/uL Hgb 12.0 (12.0-16.0) g/dL Hct 36.5 (35-47) % MCV 93.1 (78-100) fL MCH 30.6 (26-32) pg MCHC 32.9 (32-36) g/dL RDW 13.2 (11.5-14.0) % Plt Count 203 (150-450) x10^3/uL MPV 9.9 (7.5-11.0) fL Sodium 139 (137-145) mmol/L Potassium 3.6 (3.5-5.1) mmol/L Chloride 108 H (98-107) mmol/L Carbon Dioxide 22 (22-30) mmol/L Anion Gap 12.5 (5-15) MEQ/L BUN 15 (7-17) mg/dL Creatinine 0.80 (0.52-1.04) mg/dL Estimated GFR > 60.0 ML/MIN Glucose 117 H (74-106) mg/dL Calcium 8.5 (8.4-10.2) mg/dL Total Bilirubin 1.10 (0.2-1.3) mg/dL AST 401 H (14-36) U/L ALT 242 H (0-35) U/L Alkaline Phosphatase 135 H (38-126) U/L Creatine Kinase (30-135) U/L Serum Total Protein 6.4 (6.3-8.2) g/dL Albumin 3.8 (3.5-5.0) g/dL Triglycerides 83 (30-150) mg/dL Cholesterol 150 (50-200) mg/dL LDL Cholesterol 76 (30-100) mg/dL HDL Cholesterol 54 (40-60) mg/dL Heart Disease Risk Ratio 2.8 - Radiology Exams Ordered Rad Exams-Entire Visit: Radiology Procedures Category Date Time Status ABDOMEN AND PELVIS W&WO CONTRA [CT] Stat Exams 02/28/23 09:48 Completed ABDOMINAL-LIMITED [US] Stat Exams 02/28/23 08:00 Completed FEMUR Stat Exams 02/27/23 12:17 Completed LOWER LEG Stat Exams 02/27/23 12:17 Completed MRI LOWER EXT W/O CONTRAST [MRI] Stat Exams 02/27/23 13:58 Completed - Procedures and Test Procedures and Tests throughout Hospitalization: Therapy Orders & Screens 02/28/23 07:00 Respiratory Therapy Assessment DAILY Comment: Diagnosis: Contuision of left leg; Pain in left thigh; Fall Discharge Exam General Appearance: no apparent distress, alert Neurologic Exam: alert, oriented x 3, cooperative, normal mood/affect, nml cerebellar function, sensation nml, No motor deficits Eye Exam: PERRL, EOMI, eyes nml inspection Ears, Nose, Throat Exam: normal ENT inspection, pharynx normal, moist mucous membranes Neck Exam: normal inspection, non-tender, supple, full range of motion Respiratory Exam: normal breath sounds, lungs clear, No respiratory distress Cardiovascular Exam: regular rate/rhythm, normal heart sounds Gastrointestinal/Abdomen Exam: soft, No tenderness, No mass Pelvic Exam: deferred Rectal Exam: deferred Back Exam: normal inspection, normal range of motion, No CVA tenderness, No vertebral tenderness Extremity Exam: normal inspection, normal range of motion Skin Exam: normal color, warm, dry, other (LLE hematoma) Final Diagnosis/Problem List - Final Discharge Diagnosis/Problem (1) Contusion of left leg Current Visit: Yes Status: Acute Code(s): S80.12XA - CONTUSION OF LEFT LOWER LEG, INITIAL ENCOUNTER (2) Fall Current Visit: Yes Status: Acute Code(s): W19.XXXA - UNSPECIFIED FALL, INITIAL ENCOUNTER (3) Depression Current Visit: Yes Status: Chronic Code(s): F32.A - DEPRESSION, UNSPECIFIED (4) GERD (gastroesophageal reflux disease) Current Visit: Yes Status: Chronic Code(s): K21.9 - GASTRO-ESOPHAGEAL REFLUX DISEASE WITHOUT ESOPHAGITIS (5) HTN (hypertension) Current Visit: Yes Status: Acute Code(s): I10 - ESSENTIAL (PRIMARY) HYPERTENSION (6) Abnormal AST and ALT Current Visit: Yes Status: Acute Assessment & Plan: (1) Contusion of left leg Current Visit: Yes Status: Acute Assessment & Plan: - 2:2 fall - PT/ OT - XR femur and tib/ fib negative for fx. - MRI pending - Negative - PRN narcotic pain medication and tylenol - Gabapentin - Ice pack to affected areas Code(s): S80.12XA - (2) Fall Current Visit: Yes Status: Acute Assessment & Plan: - pt reports she did not lift her leg high enough and fell on concrete - PT/OT 02/28 - OP PT - pt set up for OP at [place] Code(s): W19.XXXA - (3) Depression Current Visit: Yes Status: Chronic Assessment & Plan: - continue home med Code(s): F32.A - DEPRESSION, UNSPECIFIED (4) GERD (gastroesophageal reflux disease) Current Visit: Yes Status: Chronic Assessment & Plan: - continue home med Code(s): K21.9 - GASTRO-ESOPHAGEAL REFLUX DISEASE WITHOUT ESOPHAGITIS (5) HTN (hypertension) Current Visit: Yes Status: Acute Assessment & Plan: - stable - continue home med Code(s): I10 - ESSENTIAL (PRIMARY) HYPERTENSION (6) Abnormal AST and ALT Current Visit: Yes Status: Acute Assessment & Plan: - Will recheck in AM - Lipid panel in AM - CK ordered- negative - US liver 02/28 - AST 401, ALT 244 - CT abd - negative - US liver negative. - Lipid panel WNL Code(s): R74.8 - ABNORMAL LEVELS OF OTHER SERUM ENZYMES - Discharge Discharge Date: 02/28/23 Disposition: Home, Self-Care Condition: Stable Prescriptions: New Gabapentin [Neurontin ] 300 mg PO TID 10 Days #30 cap Acetaminophen 325 mg [Tylenol 325 mg] 650 mg PO Q6H PRN PRN 10 Days #40 tablet PRN Reason: Pain And/Or Fever Continue Fluoxetine HCl 10 mg [Prozac 10 mg] 10 mg PO HS Latanoprost [Xalatan] 2.5 ml OP HS Furosemide 20 mg [Lasix 20 mg] 20 mg PO DAILY PRN PRN Reason: SWELLING Fluticasone Propionate [Flonase Allergy Relief] 9.9 ml NS DAILY Famotidine [Pepcid] 40 mg PO BID Estradiol [Estrace] 42.5 gm VG WEEKLY Calcium Carb/Vitamin D3/Vit K1 [Calcium + D Soft Chewable Tab] 1 each PO BID Albuterol Common Canister [Ventolin Common Canister] 1 puff IH Q4HPRN PRN PRN Reason: Shortness Of Breath/Wheezing Lisinopril 10 mg [Zestril 10 MG] 10 mg PO DAILY Omeprazole 40 mg PO DAILY Outpatient Orders: Physical Therapy Eval & Treat Facility: [facility], Location: PHYSICAL THERAPY Follow up with: ELIANE MALLORY DO [Primary Care Provider] -
[2023-02-28] MEDS ORDERED: Protonix 40MG Tablet PO SCH (13:00)
[2023-03-01] MEDS ORDERED: NON-FORMULARY ITEM (Omeprazole [Omeprazole] 40 MG Capsule.Dr) PO SCH (10:00)
[2023-03-01] MEDS ORDERED: Docusate Sodium 100 MG PO ONE (13:00)
== END 2023-02-28 15:38 | disposition home or self-care (01) ==
LOC: ED 11:29 → MED SURG 15:52
PROVIDERS: ADMIT Internal Medicine; ATTEND Internal Medicine
DX: S80.12XA Contusion of left lower leg, initial encounter (principal); W19.XXXA Unspecified fall, initial encounter; F32.A Depression, unspecified; K21.9 Gastro-esophageal reflux disease without esophagitis; I10 Essential (primary) hypertension; R74.8 Abnormal levels of other serum enzymes; M79.605 Pain in left leg; Z79.899 Other long term (current) drug therapy; Z20.828 Contact with and (suspected) exposure to other viral communicable diseases
CPT/HCPCS: 36000; 36415; 73552; 73590; 73718; 74178; 76705; 80053; 80061; 82550; 83721; 85027; 93268; 94760; 96374; 99285; J0360; J2270; Q3014; A9270-GY; G0378

== ENCOUNTER 2023-08-04 12:08 | Emergency (ER) | payer MEDICARE ==
--- NOTE | 2023-08-04 12:18 | ERPHSYRPT ---
- History of Present Illness Time Seen by Provider: 08/04/23 12:45 Source: patient, family Exam Limitations: no limitations Physician History: This is a 77-year-old white female patient of nurse practitioner Jose M who presents with weakness and bodyaches that been present for 5 to 6 days. Patient thinks she has something viral but she has not been tested. She also complains of some right upper quad abdominal pain. Approximately 2 to 3 years ago, at [facility] in [facility], she did have a area drain that was an abscess followed by a drainage of a seroma. Again, this was 2 to 3 years ago. She denies chest pain. She denies nausea vomiting and diarrhea symptoms. She denies shortness of breath. She does have a history of hypertension, gastroes ophageal reflux disease, pneumonia, anxiety and depression. Timing/Duration: day(s) (5) Severity: moderate Associated Symptoms: abdominal pain (Right upper quadrant), weakness, other (Body aches) Allergies/Adverse Reactions: clindamycin Allergy (Intermediate, Verified 02/27/23 11:38) Hives ketamine Allergy (Intermediate, Verified 02/27/23 11:38) Nausea and Vomiting pantoprazole Adverse Reaction (Intermediate, Verified 02/27/23 11:38) Lightheadedness Home Medications: Calcium Carb/Vitamin D3/Vit K1 [Calcium + D Soft Chewable Tab] 1 each PO BID 08/25/21 [History] Estradiol [Estrace] 42.5 gm VG WEEKLY 08/25/21 [History] Famotidine [Pepcid] 40 mg PO BID 08/25/21 [History] Fluoxetine HCl 10 mg [Prozac 10 mg] 10 mg PO HS 08/25/21 [History] Fluticasone Propionate [Flonase Allergy Relief] 9.9 ml NS DAILY 08/25/21 [History] Latanoprost [Xalatan] 2.5 ml OP HS 08/25/21 [History] Omeprazole 40 mg PO DAILY 02/27/23 [History] Olmesartan/Amlodipin/Hcthiazid [Foenouj-Hwzhun-Mevr 20-5-12.5] 1 each PO DAILY 08/04/23 [History] Hx Tetanus, Diphtheria Vaccination/Date Given: No Hx Influenza Vaccination/Date Given: Yes Hx Pneumococcal Vaccination/Date Given: Yes Travel Risk - International Travel Have you traveled outside of the country in past 3 weeks: No - Coronavirus Screening Are you exhibiting any of the following symptoms?: Yes Symptoms: Headaches/Body Aches/Fatigue Close contact with a COVID-19 positive Pt in past 14-21 Days: No - Vaccine Status Have you recieved a Covid-19 vaccination: Yes Online Tutor: Moderna - Vaccination Dates Date of 2cond Vaccination (if applicable): 2020 - Review of Systems Constitutional: Weakness Eyes: No Symptoms Ears, Nose, & Throat: No Symptoms Respiratory: No Symptoms Cardiac: No Symptoms Abdominal/Gastrointestinal: Abdominal Pain (RUQ) Genitourinary Symptoms: No Symptoms Musculoskeletal: No Symptoms Skin: No Symptoms Neurological: No Symptoms Psychological: No Symptoms Endocrine: No Symptoms Hematologic/Lymphatic: No Symptoms Immunological/Allergic: No Symptoms All Other Systems: Reviewed and Negative - Past Medical History Pertinent Past Medical History: Yes Neurological History: No Pertinent History ENT History: Glaucoma Cardiac History: Hypertension Respiratory History: Pneumonia Endocrine Medical History: No Pertinent History Musculoskeletal History: No Pertinent History GI Medical History: GERD History: No Pertinent History Psycho-Social History: No Pertinent History Female Reproductive Disorders: No Pertinent History - Past Surgical History Past Surgical History: Yes Neuro Surgical History: No Pertinent History Cardiac: No Pertinent History Respiratory: No Pertinent History Gastrointestinal: Hernia Repair, Other Genitourinary: No Pertinent History Musculoskeletal: No Pertinent History Female Surgical History: Tubal Ligation Other Surgical History: ruptured gastric ulcer, i&d of abcessed incision. Significant Family History: no pertinent family hx - Social History Smoking Status: Former smoker How long have you smoked: 2 years Exposure to second hand smoke: No Drug Use: none Patient Lives Alone: No - Nursing Vital Signs Nursing Vital Signs: Initial Vital Signs Temperature 97.1 F 08/04/23 12:21 Pulse Rate 80 08/04/23 12:21 Respiratory Rate 20 08/04/23 12:21 Blood Pressure 127/89 08/04/23 12:21 O2 Sat by Pulse Oximetry 98 08/04/23 12:21 Pain Scale Pain Intensity 0 - Physical Exam General Appearance: no apparent distress, alert, anxiety, obese Eye Exam: PERRL/EOMI, eyes nml inspection Ears, Nose, Throat Exam: normal ENT inspection, moist mucous membranes Neck Exam: normal inspection, non-tender, supple, full range of motion Respiratory Exam: normal breath sounds, lungs clear, airway intact, No chest tenderness, No respiratory distress Gastrointestinal/Abdomen Exam: soft, normal bowel sounds, tenderness (RUQ) Pelvic Exam: not done Rectal Exam: not done Back Exam: normal inspection, normal range of motion, No CVA tenderness, No vertebral tenderness Extremity Exam: normal inspection, normal range of motion, pelvis stable Neurologic Exam: alert, oriented x 3, cooperative, band instrument maker II-XII nml as tested, nml cerebellar function, nml station & gait, sensation nml Skin Exam: normal color, warm, dry Lymphatic Exam: No adenopathy SpO2 Interpretation: normal - Course Nursing assessment & vital signs reviewed: Yes Ordered Tests: Active Orders 24 hr Category Date Time Status EKG-ER Only STAT Care 08/04/23 12:35 Active IV Insertion STAT Care 08/04/23 12:35 Active ABDOMEN AND PELVIS W/0 CONTRAS [CT] Stat Exams 08/04/23 12:36 Completed AMYLASE Stat Lab 08/04/23 12:55 Completed CBC W DIFF Stat Lab 08/04/23 12:55 Completed CMP Stat Lab 08/04/23 12:55 Completed LIPASE Stat Lab 08/04/23 12:55 Completed Lactic Acid Stat Lab 08/04/23 12:35 Completed MONO SCREEN Stat Lab 08/04/23 12:55 Completed TROPONIN Q4H Lab 08/04/23 12:55 Completed TROPONIN Q4H Lab 08/04/23 16:45 Ordered TROPONIN Q4H Lab 08/04/23 20:45 Ordered UA W/RFX UR CULTURE Stat Lab 08/04/23 12:43 Completed Lab/Rad Data: Laboratory Result Diagrams 08/04/23 12:55 08/04/23 12:55 Laboratory Results 08/04/23 08/04/23 08/04/23 Range/Units 12:55 12:55 12:55 WBC (4.0-10.5) x10^3/uL RBC (4.1-5.4) x10^6/uL Hgb (12.0-16.0) g/dL Hct (35-47) % MCV (78-100) fL MCH (26-32) pg MCHC (32-36) g/dL RDW (11.5-14.0) % Plt Count (150-450) x10^3/uL MPV (7.5-11.0) fL Gran % (36.0-66.0) % Immature Gran % (Auto) (0.00-0.4) % Nucleat RBC Rel Count (0.00-0.1) % Eos # (Auto) (0-0.5) x10^3/uL Immature Gran # (Auto) (0.00-0.03) x10^3u/L Absolute Lymphs (auto) (1.0-4.6) x10^3/uL Absolute Monos (auto) (0.0-1.3) x10^3/uL Absolute Nucleated RBC (0.00-0.01) x10^3u/L Lymphocytes % (24.0-44.0) % Monocytes % (0.0-12.0) % Eosinophils % (0.00-5.0) % Basophils % (0.0-0.4) % Absolute Granulocytes (1.4-6.9) x10^3/uL Basophils # (0-0.4) x10^3/uL Sodium (135-145) mmol/L Potassium (3.5-5.1) mmol/L Chloride (98-107) mmol/L Carbon Dioxide (22-30) mmol/L Anion Gap (5-15) MEQ/L BUN (7-17) mg/dL Creatinine (0.52-1.04) mg/dL Estimated GFR ML/MIN Glucose (74-106) mg/dL Lactic Acid (0.4-2.0) Calcium (8.4-10.2) mg/dL Total Bilirubin (0.2-1.3) mg/dL AST (14-36) U/L ALT (0-35) U/L Alkaline Phosphatase (38-126) U/L Troponin I < 0.012 (0.000-0.034) ng/mL Serum Total Protein (6.3-8.2) g/dL Albumin (3.5-5.0) g/dL Amylase (30-110) U/L Lipase (23-300) U/L Urine Color (Yellow) Urine Appearance (Clear) Urine pH (4.6-8.0) Ur Specific [place] (1.005-1.030) Urine Protein (Negative) Urine Glucose (UA) (Negative) mg/dL Urine Ketones (Negative) Urine Blood (Negative) Urine Nitrite (Negative) Urine Bilirubin (Negative) Urine Urobilinogen (0.2) mg/dL Ur Leukocyte Esterase (Negative) U Hyaline Cast (Auto) (0-2) /LPF Urine Microscopic RBC (0-5) /HPF Urine Microscopic WBC (0-5) /HPF Ur Epithelial Cells (None Seen) /HPF Urine Bacteria (None Seen) /HPF Urine Culture Reflexed (NO) Monoscreen NEGATIVE (NEGATIVE) Influenza Type A Ag NEGATIVE (NEGATIVE) Influenza Type B Ag NEGATIVE (NEGATIVE) RSV (PCR) NEGATIVE (NEGATIVE) SARS-CoV-2 (PCR) NEGATIVE (NEGATIVE) 08/04/23 08/04/23 08/04/23 Range/Units 12:55 12:55 12:43 WBC 10.0 (4.0-10.5) x10^3/uL RBC 4.15 (4.1-5.4) x10^6/uL Hgb 12.8 (12.0-16.0) g/dL Hct 38.5 (35-47) % MCV 92.8 (78-100) fL MCH 30.8 (26-32) pg MCHC 33.2 (32-36) g/dL RDW 12.4 (11.5-14.0) % Plt Count 303 (150-450) x10^3/uL MPV 9.3 (7.5-11.0) fL Gran % 77.1 H (36.0-66.0) % Immature Gran % (Auto) 0.4 (0.00-0.4) % Nucleat RBC Rel Count 0.0 (0.00-0.1) % Eos # (Auto) 0.03 (0-0.5) x10^3/uL Immature Gran # (Auto) 0.04 H (0.00-0.03) x10^3u/L Absolute Lymphs (auto) 1.16 (1.0-4.6) x10^3/uL Absolute Monos (auto) 0.99 (0.0-1.3) x10^3/uL Absolute Nucleated RBC 0.00 (0.00-0.01) x10^3u/L Lymphocytes % 11.6 L (24.0-44.0) % Monocytes % 9.9 (0.0-12.0) % Eosinophils % 0.3 (0.00-5.0) % Basophils % 0.7 (0.0-0.4) % Absolute Granulocytes 7.71 H (1.4-6.9) x10^3/uL Basophils # 0.07 (0-0.4) x10^3/uL Sodium 133 L (135-145) mmol/L Potassium 4.1 (3.5-5.1) mmol/L Chloride 96 L (98-107) mmol/L Carbon Dioxide 24 (22-30) mmol/L Anion Gap 16.1 H (5-15) MEQ/L BUN 24 H (7-17) mg/dL Creatinine 1.10 H (0.52-1.04) mg/dL Estimated GFR 52.4 ML/MIN Glucose 125 H (74-106) mg/dL Lactic Acid (0.4-2.0) Calcium 9.3 (8.4-10.2) mg/dL Total Bilirubin 1.00 (0.2-1.3) mg/dL AST 58 H (14-36) U/L ALT 52 H (0-35) U/L Alkaline Phosphatase 93 (38-126) U/L Troponin I (0.000-0.034) ng/mL Serum Total Protein 7.8 (6.3-8.2) g/dL Albumin 4.0 (3.5-5.0) g/dL Amylase 65 (30-110) U/L Lipase 45 (23-300) U/L Urine Color Dark Yellow A (Yellow) Urine Appearance Clear (Clear) Urine pH 5.5 (4.6-8.0) Ur Specific [place] 1.020 (1.005-1.030) Urine Protein Trace A (Negative) Urine Glucose (UA) Negative (Negative) mg/dL Urine Ketones Negative (Negative) Urine Blood Negative (Negative) Urine Nitrite Negative (Negative) Urine Bilirubin Small A (Negative) Urine Urobilinogen 1.0 A (0.2) mg/dL Ur Leukocyte Esterase Negative (Negative) U Hyaline Cast (Auto) 3-5 A (0-2) /LPF Urine Microscopic RBC 3-5 (0-5) /HPF Urine Microscopic WBC 0-2 (0-5) /HPF Ur Epithelial Cells Rare (None Seen) /HPF Urine Bacteria None Seen (None Seen) /HPF Urine Culture Reflexed NO (NO) Monoscreen (NEGATIVE) Influenza Type A Ag (NEGATIVE) Influenza Type B Ag (NEGATIVE) RSV (PCR) (NEGATIVE) SARS-CoV-2 (PCR) (NEGATIVE) 08/04/23 Range/Units 12:35 WBC (4.0-10.5) x10^3/uL RBC (4.1-5.4) x10^6/uL Hgb (12.0-16.0) g/dL Hct (35-47) % MCV (78-100) fL MCH (26-32) pg MCHC (32-36) g/dL RDW (11.5-14.0) % Plt Count (150-450) x10^3/uL MPV (7.5-11.0) fL Gran % (36.0-66.0) % Immature Gran % (Auto) (0.00-0.4) % Nucleat RBC Rel Count (0.00-0.1) % Eos # (Auto) (0-0.5) x10^3/uL Immature Gran # (Auto) (0.00-0.03) x10^3u/L Absolute Lymphs (auto) (1.0-4.6) x10^3/uL Absolute Monos (auto) (0.0-1.3) x10^3/uL Absolute Nucleated RBC (0.00-0.01) x10^3u/L Lymphocytes % (24.0-44.0) % Monocytes % (0.0-12.0) % Eosinophils % (0.00-5.0) % Basophils % (0.0-0.4) % Absolute Granulocytes (1.4-6.9) x10^3/uL Basophils # (0-0.4) x10^3/uL Sodium (135-145) mmol/L Potassium (3.5-5.1) mmol/L Chloride (98-107) mmol/L Carbon Dioxide (22-30) mmol/L Anion Gap (5-15) MEQ/L BUN (7-17) mg/dL Creatinine (0.52-1.04) mg/dL Estimated GFR ML/MIN Glucose (74-106) mg/dL Lactic Acid 1.3 (0.4-2.0) Calcium (8.4-10.2) mg/dL Total Bilirubin (0.2-1.3) mg/dL AST (14-36) U/L ALT (0-35) U/L Alkaline Phosphatase (38-126) U/L Troponin I (0.000-0.034) ng/mL Serum Total Protein (6.3-8.2) g/dL Albumin (3.5-5.0) g/dL Amylase (30-110) U/L Lipase (23-300) U/L Urine Color (Yellow) Urine Appearance (Clear) Urine pH (4.6-8.0) Ur Specific [place] (1.005-1.030) Urine Protein (Negative) Urine Glucose (UA) (Negative) mg/dL Urine Ketones (Negative) Urine Blood (Negative) Urine Nitrite (Negative) Urine Bilirubin (Negative) Urine Urobilinogen (0.2) mg/dL Ur Leukocyte Esterase (Negative) U Hyaline Cast (Auto) (0-2) /LPF Urine Microscopic RBC (0-5) /HPF Urine Microscopic WBC (0-5) /HPF Ur Epithelial Cells (None Seen) /HPF Urine Bacteria (None Seen) /HPF Urine Culture Reflexed (NO) Monoscreen (NEGATIVE) Influenza Type A Ag (NEGATIVE) Influenza Type B Ag (NEGATIVE) RSV (PCR) (NEGATIVE) SARS-CoV-2 (PCR) (NEGATIVE) - Progress Progress: improved, pain not gone completely, re-examined Progress Note: 08/04/23 13:04 This patient's medical issue is 1 of moderate complexity. The level of complexity in the workup performed is based on review of the patient's past medical history, review of the patient's medication list, review of the patient's drug allergy list, history of present illness and physical findings on examination. The workup includes placement of intravenous line, infusion of normal saline solution, viral swabs and monotest, urinalysis, CBC, CMP, amylase, lipase, lactic acid level, CT scan of the abdomen and pelvis, twelve-lead EKG and troponin level. 08/04/23 15:01 I interpreted the patient's laboratory data workup. Based on the laboratory data results, this patient does not have an acute, emergent medical issue. CT scan of the abdomen pelvis was performed without contrast and was interpreted by the radiologist. This study was compared to similar study dated 02/28/2023. The impression reads new right upper quadrant hypodense mass versus complex viscous fluid collection interposed between the liver and the anterior abdominal wall. This is a nonspecific finding (inflammatory versus infection versus posttraumatic hematoma). There is no evidence abdominal aortic aneurysm. There is a stable supraumbilical ventral hernia defect without complications. We will provide the patient with intravenous fluid bolus of normal saline as well as oral Levaquin and oral Flagyl. Counseled pt/family regarding: lab results, diagnosis, need for follow-up, rad results Medical Desision Making - Independent Historian Additional History obtained from: Spouse - Diagnostic Testing Diagnostic test were ordered, analyzed, and reviewed by me: Yes Radiological Interpretation: Reviewed by me, Teleradiologist Report - Risk of complications The pt has a mod risk of morbidity or mortality based on: Need for prescription drug management - Departure Departure Disposition: Home Clinical Impression: Right upper quadrant abdominal pain, Intra-abdominal fluid collection Condition: Stable Critical Care Time: No Referrals: OBDULIA GHOTRA NP [Primary Care Provider] - Follow up/PCP as directed Additional Instructions: Take your medications as prescribed. Call your primary care provider and your surgeon that drained this fluid collection in the past today, 08/04/2023, to make arrangements for follow-up appointment in the next 3 days for further management. Prescriptions: Hydrocodone/APAP 5/325 [[place] 5/325 mg] 1 each PO Q8H PRN PRN #8 tablet MDD 3 PRN Reason: Pain Ciprofloxacin [Cipro 500 MG] 500 mg PO BID #14 tablet Metronidazole 500 mg [Flagyl 500 MG] 500 mg PO TID #21 tablet
[2023-08-04 12:28] VITALS: TEMP 97.1
[2023-08-04 12:43] VITALS: O2SAT 99
[2023-08-04 13:05] LABS: Absolute Neutrophil Ct (ANC) 7.71 x10^3/uL (1.4-6.9); BASOPHIL % 0.7 % (0.0-0.4); Basophil (Absolute #) 0.07 x10^3/uL (0-0.4); Eosinophil % 0.3 % (0.00-5.0); Eosinophil (Absolute #) 0.03 x10^3/uL (0-0.5); Hematocrit 38.5 % (35-47); Hemoglobin 12.8 g/dL (12.0-16.0); IMMATURE GRAN # 0.04 x10^3u/L (0.00-0.03); IMMATURE GRAN % 0.4 % (0.00-0.4); Lymphocyte (Absolute #) 1.16 x10^3/uL (1.0-4.6); Lymphocytes % 11.6 % (24.0-44.0); Mean Cell Volume 92.8 fL (78-100); Mean Corpuscular Hemoglobin 30.8 pg (26-32); Mean Corpuscular Hgb Concent. 33.2 g/dL (32-36); Mean Platelet Volume 9.3 fL (7.5-11.0); Monocyte (Absolute #) 0.99 x10^3/uL (0.0-1.3); Monocytes % 9.9 % (0.0-12.0); Neutrophil % 77.1 % (36.0-66.0); Platelet Count 303 x10^3/uL (150-450); Red Blood Count 4.15 x10^6/uL (4.1-5.4); Red Cell Distribution Width 12.4 % (11.5-14.0)
[2023-08-04 13:14] LABS: Appearance Clear (Clear); Bacteria None Seen /HPF (None Seen); Bilirubin Small (Negative); Blood Negative (Negative); Epithelial Cells Rare /HPF (None Seen); Glucose, Urine Negative (Negative); Ketones Negative (Negative); Leukocyte Esterase Negative (Negative); Nitrite Negative (Negative); Ph 5.5 (4.6-8.0); Protein,Urine Dip Trace (Negative); WBC 0-2 /HPF (0-5)
[2023-08-04 13:28] LABS: ANION GAP 16.1 MEQ/L (5-15); Calcium 9.3 mg/dL (8.4-10.2); Creatinine 1 1.1 mg/dL (0.52-1.04); EST GLOMERULAR FILTRATION RATE 52.4 ML/MIN; Potassium 4.1 mmol/L (3.5-5.1); Total Protein 7.8 g/dL (6.3-8.2)
--- NOTE | 2023-08-04 13:33 | XRAY ---
Indication: Right upper quadrant pain. Multiple contiguous axial images obtained through the abdomen and pelvis without contrast. Comparison: February 28, 2023 Lung bases again demonstrates minimal fibrosis/scarring. No infiltrate or effusion. Heart not enlarged. Noncontrasted stomach and bowel loops appear nonobstructed with normal appendix. New radiopacities throughout colon either ingested medication, bismuth, or barium. Again mild scattered colonic diverticulosis without diverticulitis, calcified uterine fibroids, and cholecystectomy. No free fluid/air. Right upper quadrant demonstrates new noncalcified hypodense mass interposed between liver and abdominal wall measuring at least 4.2 x 8.3 x 6.0 cm in greatest AP, transverse, and CC projections. Hounsfield units average 25-28 either soft tissue mass versus complex viscus fluid collection. Mass partially wraps around anterior arc 8th rib without osseous destructive process. There is minimal stranding/induration suggesting inflammatory process. Lack of IV contrast precludes further characterization. Remaining liver, pancreas, spleen, adrenal glands, kidneys, ureters, bladder, and uterus are unremarkable for noncontrast exam. Stable minimal aortic calcifications without AAA. Osseous structures intact again with osteopenia and mild degenerative changes throughout the spine. Grossly stable supraumbilical ventral hernia defect with slight protruding loop of transverse colon without complications. Impression: 1. New right upper quadrant hypodense mass versus complex viscus fluid collection interposed between liver and anterior abdominal wall as detailed. Finding nonspecific. Query inflammatory/infectious process versus posttraumatic hematoma. Doubt malignancy. 2. Again chronic findings including calcified uterine fibroids, colonic diverticulosis, arteriosclerotic disease, ventral hernia, and chronic bony findings.
[2023-08-04 13:40] LABS: ADD URINE CULTURE? NO (NO)
[2023-08-04 13:44] LABS: INFLUENZA A NEGATIVE (NEGATIVE); INFLUENZA B NEGATIVE (NEGATIVE); RESPIRATORY SYNCTIAL VIRUS NEGATIVE (NEGATIVE); SARS-CoV-2 Xpert Express NEGATIVE (NEGATIVE)
[2023-08-04] MEDS ORDERED: Flagyl 500 MG ONE (15:16)
[2023-08-04] MEDS ORDERED: Levofloxacin 500 MG Tablet ONE (15:16)
[2023-08-04] MEDS ORDERED: NORCO 5/325 MG ONE (15:16)
[2023-08-04] MEDS ORDERED: Sodium Chloride 0.9% 500 ML 500 ML IV ONE (15:16)
[2023-08-04] MEDS: NORCO 5/325 MG PO ONE (15:17)
[2023-08-04] MEDS: Sodium Chloride 0.9% 500 ML 500 ML IV ONE (15:17)
[2023-08-04] MEDS: Levofloxacin 500 MG Tablet PO ONE (15:17)
[2023-08-04] MEDS: Flagyl 500 MG PO ONE (15:18)
[2023-08-04 16:20] VITALS: BP 138/66; PULSE 60; RESP 20
== END 2023-08-04 16:21 | disposition home or self-care (01) ==
LOC: ED 12:08
DX: R10.11 Right upper quadrant pain (principal); R18.8 Other ascites; R53.1 Weakness; M79.10 Myalgia, unspecified site; I10 Essential (primary) hypertension; Z79.899 Other long term (current) drug therapy; Z20.828 Contact with and (suspected) exposure to other viral communicable diseases
CPT/HCPCS: 0241U; 74176; 80053; 81001; 82150; 83605; 83690; 84484; 85025; 86308; 93005; 99284; 36415; A9270-GY

== ENCOUNTER 2024-09-19 08:57 | Day surgery (SDC) | payer MEDICARE ==
[2024-09-19] MEDS: Lactated Ringers 1,000 ML IV SCH (09:04)
--- NOTE | 2024-09-19 09:52 | HP ---
HISTORY OF PRESENT ILLNESS: The patient is a 78-year-old female who presents with a history of Gray's. She has no issues. She is on some omeprazole and Pepcid. She does see the GI. PAST MEDICAL HISTORY: Hypertension, thyroid, hyperlipidemia, arthritis, coronary artery disease, glaucoma. HOME MEDICATIONS: Omeprazole, famotidine, Florastor, fluoxetine, levothyroxine, calcium, olmesartan, estradiol, metoprolol. ALLERGIES: Clindamycin, ketamine, and pantoprazole. PAST SURGICAL HISTORY: Cholecystectomy, tubal ligation. SOCIAL HISTORY: Occasional alcohol. FAMILY HISTORY: Prostate cancer, kidney cancer, brain, lung, and liver cancer. REVIEW OF SYSTEMS: CONSTITUTIONAL: Denies fever or chills. CHEST: Denies shortness of breath. CARDIOVASCULAR: Denies chest pain. ABDOMEN: Denies abdominal pain. PHYSICAL EXAMINATION: GENERAL: No acute distress. CARDIOVASCULAR: Regular rate and rhythm. RESPIRATORY: Nonlabored. No shortness of breath. ABDOMEN: Soft. IMPRESSION: History of Gray's. PLAN: EGD with Dr. Chase Guaman. This report was dictated for Dr. Guaman by Merary Hua NP.
[2024-09-19] MEDS ORDERED: propofoL IV ONE (10:27)
[2024-09-19] MEDS ORDERED: Xylocaine-Mpf 2% 5 Ml Vial ONE (10:27)
[2024-09-19 11:12] VITALS: PULSE 55; RESP 16; TEMP 96.1
[2024-09-19 11:24] VITALS: BP 163/77; O2SAT 100
--- NOTE | 2024-09-23 07:57 | OP ---
SURGERY DATE/TIME: 09/19/2024 [id number] PREOPERATIVE DIAGNOSIS: Gray's. POSTOPERATIVE DIAGNOSIS: Probable Gray's. PROCEDURE: Esophagogastroduodenoscopy with cold biopsy of the distal esophagus x2. SURGEON: Chase Guaman MD ANESTHESIA: General. COMPLICATIONS: None. CONDITION: Stable. INDICATION FOR PROCEDURE: The patient has history of Gray's. She has not had a recent exam. She does note some reflux symptoms. DESCRIPTION OF PROCEDURE: She was taken to endoscopy. Left lateral decubitus position. Scope was introduced. Pharyngoesophageal junction normal. Esophagus normal. There was some irritation at the EG junction. I believe there was some Gray's. Fundus, body, and antrum were satisfactory. Pylorus was satisfactory. Duodenal bulb was satisfactory. Scope looped on itself. No hiatal hernia. Scope was brought back. Two senior outside sales representative cold biopsies of distal esophagus. I think this patient may benefit from the new anti-reflux drug. She has been on traditional treatment and it has not totally resolved the problem. Findings were discussed with the in the waiting room . When she comes back with reports of her Gray's, we may suggest changing her to the recent drug that has been on the market about 6 months that alleviates heartburn in about 90% of people, and it is a step up from the previous treatment.
== END 2024-09-19 11:38 | disposition home or self-care (01) ==
LOC: SDC 08:57
PROVIDERS: ATTEND Surgery
DX: K22.70 Barrett's esophagus without dysplasia (principal); Z80.42 Family history of malignant neoplasm of prostate; Z80.51 Family history of malignant neoplasm of kidney; Z80.8 Family history of malignant neoplasm of other organs or systems
CPT/HCPCS: 99100; J2704